=== PATIENT | male | born 1985 | race Caucasian/White ===

== ENCOUNTER 2016-03-26 17:43 | Emergency (ER) | payer OTHER ==
[2016-03-26] MEDS ORDERED: KETOROLAC 30 MG/ML VIAL (J1885) As Ordered ONE (19:11)
[2016-03-26] MEDS ORDERED: ONDANSETRON 4MG/2ML VIAL (J2405) As Ordered ONE (19:11)
[2016-03-26 19:14] LABS: BASO % 0.1 % (0.0-1.0); EOS # 0.3 K/mm3 (0.0-0.50); EOS % 1.7 % (0.0-3.0); LARGE UNSTAINED CELL % 0.2 % (0.0-4.0); LYMPH # 0.5 K/mm3 (1.5-4.5); LYMPH % 3.2 % (24.0-44.0); MEAN CORPUSCULAR HEMOGLOBIN 30.6 pg (27.0-33.0); MEAN CORPUSCULAR HGB CONC 35.5 g/dl (32.0-36.5); MEAN CORPUSCULAR VOLUME 86.2 fl (80.0-96.0); MONO # 0.3 K/mm3 (0.0-0.8); MONO % 1.9 % (0.0-5.0); NEUTROPHILS # 14.1 K/mm3 (1.8-7.7); NEUTROPHILS % 92.8 % (36.0-66.0); PLATELET COUNT, AUTOMATED 251 k/mm3 (150-450); RED CELL DISTRIBUTION WIDTH 12.2 % (11.5-14.5); WHITE BLOOD COUNT 15.2 K/mm3 (4.0-10.0)
[2016-03-26 19:36] LABS: ALBUMIN 4.5 GM/DL (3.2-5.2); ALBUMIN/GLOBULIN RATIO 1.29 (1.00-1.93); ALKALINE PHOSPHATASE 78 U/L (45-117); ALT/SGPT 55 U/L (12-78); AMYLASE 35 U/L (25-115); ANION GAP 11 MEQ/L (8-16); AST/SGOT 20 U/L (15-37); BILIRUBIN,DIRECT 0.2 MG/DL (0.0-0.2); BILIRUBIN,TOTAL 0.9 MG/DL (0.2-1.0); BLOOD UREA NITROGEN 17 MG/DL (7-18); CALCIUM LEVEL 9.5 MG/DL (8.5-10.1); CARBON DIOXIDE LEVEL 25 MEQ/L (21-32); CHLORIDE LEVEL 106 MEQ/L (98-107); CREATININE FOR GFR 1.33 MG/DL (0.70-1.30); GLOMERULAR FILTRATION RATE > 60.0 (>60); GLUCOSE, FASTING 149 MG/DL (70-105); SODIUM LEVEL 142 MEQ/L (136-145)
[2016-03-26] MEDS ORDERED: ONDANSETRON 4 MG ORAL DISINTEGRATING TAB (S0181) As Ordered ONE (20:34)
--- NOTE | 2016-03-26 20:58 | EDDOCDS ---
Physician Documentation [facility] Name: Derek Renee Age: 30 yrs Sex: Male : 1985 Arrival Date: 03/26/2016 Time: 17:43 Bed I2 / M2 Private MD: NO PRIMARY PHYSICIAN, . Disposition: 03/26/16 20:09 Discharged to Home/Self Care. Impression: Nausea and vomiting. - Condition is Stable. - Discharge Instructions: Nausea and Vomiting, Viral Gastroenteritis. - Prescriptions for Zofran 4 mg Oral Tablet - take 1 tablet by ORAL route 4 times per day As needed; 10 tablet. - Medication Reconciliation, Local Pharmacy Hours form. - [facility]; When: Call to arrange an appointment; Reason: Recheck today's complaints, Continuance of care. - Problem is an acute exacerbation. - Symptoms have improved. Historical: - Allergies: PENICILLINS (Unknown); - Home Meds: 1. none - PMHx: none; - PSHx: right hand boxer fracture with plate; Tonsillectomy; - Social history: Smoking status: Patient states was never smoker of tobacco. No barriers to communication noted, The patient speaks fluent Angolan. - Family history: Not pertinent. - : The pt / caregiver states he / she is not on anticoagulants. Home medication list is obtained from the patient. - Exposure Risk Screening:: None identified. Vital Signs: 03/26 17:44 BP 151 / 78; Pulse 80; Resp 20 S; Temp 97.8(O); Pulse Ox 99% on R/A; Weight 113.4 kg / gr2 250 lbs (R); Height 6 ft. 2 in. (187.96 cm) (M); Pain 7/10; 20:38 BP 134 / 80; Pulse 105; Resp 18; Temp 99.0(O); Pulse Ox 100% on R/A; Pain 0/10; kb5 17:44 Body Mass Index 32.10 (113.40 kg, 187.96 cm) gr2 MDM: 18:16 NS 0.9% 1000 ml IV at bolus once ordered. ke 18:16 Ondansetron 4 mg IVP once ordered. ke 18:16 ketorolac 30 mg IVP once ordered. ke 18:16 IV Saline Lock ordered. ke 18:16 Undress patient appropriately for examination ordered. ke 18:17 Amylase Ordered. EDMS 18:17 Basic Metabolic Profile Ordered. EDMS 18:17 CBC with Diff Ordered. EDMS 18:17 Lipase Ordered. EDMS 18:17 Liver Profile Ordered. EDMS 18:17 NOTHING BY MOUTH+DIET ordered. EDMS 18:28 Financial registration complete. gjb 18:38 [facility] Payment Agreement was scanned into [employer] and attached to record. gjb 19:39 Basic Metabolic Profile Reviewed. ke 19:39 CBC with Diff Reviewed. ke 19:39 Amylase Reviewed. ke 19:39 Lipase Reviewed. ke 19:39 Liver Profile Reviewed. ke 20:33 Ondansetron ODT Oral Disintegrating Tablet 4 mg PO once; dispense home with patient [facility] ordered. Administered Medications: 19:21 Drug: NS 0.9% 1000 ml Route: IV; Rate: bolus; Site: right antecubital; [facility] 20:53 Follow up: IV Status: Completed infusion; IV Intake: 1000ml [facility] 19:21 Drug: Ondansetron 4 mg Route: IVP; Site: right antecubital; [facility] 20:54 Follow up: Response: Nausea is decreased; No Adverse Reaction [facility] 19:22 Drug: ketorolac 30 mg [ketorolac 30 mg/mL (1 mL) injection solution (1 mL)] Route: IVP; [facility] Site: right antecubital; 20:54 Follow up: Response: No Adverse Reaction; Pain is decreased [facility] 20:53 Drug: Ondansetron ODT 4 mg [ondansetron 4 mg disintegrating tablet (1 tabs)] Route: PO; [facility] 20:54 Follow up: Response: Med's dispensed home [facility] Signatures: Dispatcher [employer] EDIN Bernardo Kramer, SOLE LEATHER CUTTING MACHINE OPERATOR SOLE LEATHER CUTTING MACHINE OPERATOR Vanessa Xavier RN RN Emily TristanRN SILVIA [facility] Janell De La Rosa The chart was reviewed and I authenticate all verbal orders and agree with the evaluation and treatment provided.Attachments: 18:38 [facility] Payment Agreement gj MTDD
--- NOTE | 2016-03-26 20:58 | EDDOCDS ---
Nurse's Notes [facility] Name: Derek Renee Age: 30 yrs Sex: Male : 1985 Arrival Date: 03/26/2016 Time: 17:43 Bed I2 / M2 Private MD: NO PRIMARY PHYSICIAN, . Diagnosis: Nausea and vomiting Presentation: 03/26 17:51 Presenting complaint: Patient states: NVD since 0700 this morning, reports ache to jjr chest abdomen and back. Adult Sepsis Screening: The patient does not have new or worsening altered mentation. Patient's respiratory rate is less than 22. Systolic blood pressure is greater than 100. Patient has a qSOFA score of 0- Negative Sepsis Screen. Suicide/Homicide risk assessment- the patient denies having any suicidal and/or homicidal ideations and does not present with any other emotional, behavioral or mental health complaints. Status: Patient is not a statement services representative or dependent. Transition of care: patient was not received from another setting of care. 17:51 Acuity: ZION Level 3 jjr 17:51 Method Of Arrival: Walkin/Carried/Asstd jjr Triage Assessment: 17:53 General: Appears uncomfortable, Behavior is appropriate for age. Pain: Location: back, jjr chest and abdomen Quality of pain is described as aching. HIV screening NA for this visit Offered previously. GI: Reports diarrhea, nausea, vomiting. Historical: - Allergies: PENICILLINS (Unknown); - Home Meds: 1. none - PMHx: none; - PSHx: right hand boxer fracture with plate; Tonsillectomy; - Social history: Smoking status: Patient states was never smoker of tobacco. No barriers to communication noted, The patient speaks fluent Hungarian. - Family history: Not pertinent. - : The pt / caregiver states he / she is not on anticoagulants. Home medication list is obtained from the patient. - Exposure Risk Screening:: None identified. Screenin:55 Screening information is obtained from the patient. Fall risk: No risks identified. [facility] Assistance ADL's: requires no assistance with activities of daily living. Abuse/DV Screen: The patient / caregiver reports he/she is: not in a situation that causes fear, pain or injury. Nutritional screening: No deficits noted. Advance Directives: There is no active DNR order. home support is adequate. Assessment: 19:22 General: Appears in no apparent distress, comfortable, Behavior is appropriate for age, [facility] cooperative. Pain: Location: abdomen and chest and back Pain currently is 6 out of 10 on a pain scale. Neurological: Level of Consciousness is awake, alert, Oriented to person, place, time. Respiratory: Airway is patent Respiratory effort is even, unlabored, Respiratory pattern is regular, symmetrical. GI: Abdomen is non- distended Bowel sounds present X 4 quads. Abd is soft X 4 quads Abd is tender to palpation in epigastric area Reports nausea, vomiting. Derm: Skin is pink, warm & dry. 20:55 General: Appears in no apparent distress, comfortable, Behavior is appropriate for age, [facility] cooperative, awaiting discharge, reviewed instructions, encouraged and answered questions, no further needs voiced, decline offer of additional assistance. Vital Signs: 17:44 BP 151 / 78; Pulse 80; Resp 20 S; Temp 97.8(O); Pulse Ox 99% on R/A; Weight 113.4 kg gr2 (R); Height 6 ft. 2 in. (187.96 cm) (M); Pain 7/10; 20:38 BP 134 / 80; Pulse 105; Resp 18; Temp 99.0(O); Pulse Ox 100% on R/A; Pain 0/10; kb5 17:44 Body Mass Index 32.10 (113.40 kg, 187.96 cm) gr2 Vitals: 17:44 Log In Time: March 26, 2016 at 17:44. gr2 ED Course: 17:44 Patient visited by Christian Mcmanus. gr2 17:44 NO PRIMARY PHYSICIAN, . is Private Physician. gr2 17:44 Patient moved to Waiting gr2 17:47 Patient visited by Christian Mcmanus. gr2 17:47 Patient moved to Pre RCE gr2 17:52 Triage Initiated jjr 17:53 Patient moved to Triage 2 jjr 18:06 [facility] ke 18:07 Patient visited by Bernardo Kramer FNP. ke 18:07 Patient visited by Bernardo Kramer FNP. ke 18:16 Patient moved to I2 / M2 ttb 18:36 Patient visited by Valentin Putnam PCA. jlf 18:38 [facility] Payment Agreement was scanned into [employer] and attached to record. gjb 19:14 Patient visited by Bernardo Kramer FNP. ke 19:22 The patient / caregiver is instructed regarding the plan of care and ED course. [facility] Accompanied by Family Member, Patient has correct armband on for positive identification. Placed in gown. Bed in low position. Call light in reach. 19:22 Inserted saline lock: 20 gauge in right antecubital area and blood collected. Labs [facility] drawn. (by ED staff). Sent per order to lab. 19:49 Patient visited by Bernardo Kramer FNP. ke 20:08 [facility] is Referral Physician. ke 20:38 Patient visited by Keanu Milian PCA. kb5 20:55 Discontinued lock intact, bleeding controlled, pressure dressing applied, No [facility] redness/swelling at site. No procedures done that require assistance. Administered Medications: 19:21 Drug: NS 0.9% 1000 ml Route: IV; Rate: bolus; Site: right antecubital; [facility] 20:53 Follow up: IV Status: Completed infusion; IV Intake: 1000ml [facility] 19:21 Drug: Ondansetron 4 mg Route: IVP; Site: right antecubital; [facility] 20:54 Follow up: Response: Nausea is decreased; No Adverse Reaction [facility] 19:22 Drug: ketorolac 30 mg [ketorolac 30 mg/mL (1 mL) injection solution (1 mL)] Route: IVP; [facility] Site: right antecubital; 20:54 Follow up: Response: No Adverse Reaction; Pain is decreased [facility] 20:53 Drug: Ondansetron ODT 4 mg [ondansetron 4 mg disintegrating tablet (1 tabs)] Route: PO; [facility] 20:54 Follow up: Response: Med's dispensed home [facility] Intake: 20:53 IV: 1000.00ml; Total: 1000.00ml. [facility] Order Results: Lab Order: Amylase; SPEC'M 03/26/16 19:08 Test: AMYLASE; Value: 35; Range: 25-115; Units: U/L; Status: F Lab Order: Basic Metabolic Profile; SPEC'M 03/26/16 19:08 Test: GLUCOSE, FASTING; Value: 149; Range: 70-105; Abnormal: Above high normal; Units: MG/DL; Status: F Test: BLOOD UREA NITROGEN; Value: 17; Range: 7-18; Units: MG/DL; Status: F Test: CREATININE FOR GFR; Value: 1.33; Range: 0.70-1.30; Abnormal: Above high normal; Units: MG/DL; Status: F Test: GLOMERULAR FILTRATION RATE; Value: > 60.0; Range: >60; Status: F Test: SODIUM LEVEL; Value: 142; Range: 136-145; Units: MEQ/L; Status: F Test: POTASSIUM SERUM; Value: 4.0; Range: 3.5-5.1; Units: MEQ/L; Status: F Test: CHLORIDE LEVEL; Value: 106; Range: 98-107; Units: MEQ/L; Status: F Test: CARBON DIOXIDE LEVEL; Value: 25; Range: 21-32; Units: MEQ/L; Status: F Test: ANION GAP; Value: 11; Range: 8-16; Units: MEQ/L; Status: F Test: CALCIUM LEVEL; Value: 9.5; Range: 8.5-10.1; Units: MG/DL; Status: F Test Note: ; Units are mL/min/1.73 m2 Chronic Kidney Disease Staging per NKF: Stage I & II GFR >=60 Normal to Mildly Decreased Stage III GFR 30-59 Moderately Decreased Stage IV GFR 15-29 Severely Decreased Stage V GFR <15 Very Little GFR Left ESRD GFR <15 on COMMERCIAL MARKETING SPECIALIST Lab Order: CBC with Diff; SPEC'M 03/26/16 19:08 Test: WHITE BLOOD COUNT; Value: 15.2; Range: 4.0-10.0; Abnormal: Above high normal; Units: K/mm3; Status: F Test: RED BLOOD COUNT; Value: 5.61; Range: 4.30-6.10; Units: M/mm3; Status: F Test: HEMOGLOBIN; Value: 17.1; Range: 14.0-18.0; Units: g/dl; Status: F Test: HEMATOCRIT; Value: 48.3; Range: 42.0-52.0; Units: %; Status: F Test: MEAN CORPUSCULAR VOLUME; Value: 86.2; Range: 80.0-96.0; Units: fl; Status: F Test: MEAN CORPUSCULAR HEMOGLOBIN; Value: 30.6; Range: 27.0-33.0; Units: pg; Status: F Test: MEAN CORPUSCULAR HGB CONC; Value: 35.5; Range: 32.0-36.5; Units: g/dl; Status: F Test: RED CELL DISTRIBUTION WIDTH; Value: 12.2; Range: 11.5-14.5; Units: %; Status: F Test: PLATELET COUNT, AUTOMATED; Value: 251; Range: 150-450; Units: k/mm3; Status: F Test: NEUTROPHILS %; Value: 92.8; Range: 36.0-66.0; Abnormal: Above high normal; Units: %; Status: F Test: LYMPH %; Value: 3.2; Range: 24.0-44.0; Abnormal: Below low normal; Units: %; Status: F Test: MONO %; Value: 1.9; Range: 0.0-5.0; Units: %; Status: F Test: EOS %; Value: 1.7; Range: 0.0-3.0; Units: %; Status: F Test: BASO %; Value: 0.1; Range: 0.0-1.0; Units: %; Status: F Test: LARGE UNSTAINED CELL %; Value: 0.2; Range: 0.0-4.0; Units: %; Status: F Test: NEUTROPHILS #; Value: 14.1; Range: 1.8-7.7; Abnormal: Above high normal; Units: K/mm3; Status: F Test: LYMPH #; Value: 0.5; Range: 1.5-4.5; Abnormal: Below low normal; Units: K/mm3; Status: F Test: MONO #; Value: 0.3; Range: 0.0-0.8; Units: K/mm3; Status: F Test: EOS #; Value: 0.3; Range: 0.0-0.50; Units: K/mm3; Status: F Test: BASO #; Value: 0.0; Range: 0.0-0.2; Units: K/mm3; Status: F Test: LARGE UNSTAINED CELL #; Value: 0.0; Range: 0.0-0.4; Units: K/mm3; Status: F Lab Order: Lipase; SPEC'M 03/26/16 19:08 Test: LIPASE; Value: 94; Range: 73-393; Units: U/L; Status: F Lab Order: Liver Profile; SPEC'M 03/26/16 19:08 Test: AST/SGOT; Value: 20; Range: 15-37; Units: U/L; Status: F Test: ALT/SGPT; Value: 55; Range: 12-78; Units: U/L; Status: F Test: ALKALINE PHOSPHATASE; Value: 78; Range: 45-117; Units: U/L; Status: F Test: BILIRUBIN,TOTAL; Value: 0.9; Range: 0.2-1.0; Units: MG/DL; Status: F Test: BILIRUBIN,DIRECT; Value: 0.2; Range: 0.0-0.2; Units: MG/DL; Status: F Test: TOTAL PROTEIN; Value: 8.0; Range: 6.4-8.2; Units: GM/DL; Status: F Test: ALBUMIN; Value: 4.5; Range: 3.2-5.2; Units: GM/DL; Status: F Test: ALBUMIN/GLOBULIN RATIO; Value: 1.29; Range: 1.00-1.93; Status: F Outcome: 20:09 Discharge ordered by Provider. ke 20:55 Discharge Assessment: Patient awake, alert and oriented x 3. No cognitive and/or [facility] functional deficits noted. Patient verbalized understanding of disposition instructions. patient administered narcotics - no. The following High Risk Discharge criteria are identified: None. Discharged to home ambulatory, with family. Condition: good Condition: stable Condition: improved. Discharge instructions given to patient, significant other, Instructed on discharge instructions, follow up and referral plans. medication usage, Demonstrated understanding of instructions, medications, Pt was receptive of discharge instructions/ teaching. Prescriptions given X 1. No special radiology studies were completed. Property :Personal belongings accompany Pt. 20:57 Patient left the ED. [facility] Signatures: Bernardo Kramer, JENNY PACKING AND WRAPPING SUPERVISOR Keanu Butts, SULFURIC ACID PLANT SUPERVISOR SULFURIC ACID PLANT SUPERVISOR kb5 Vanessa Mcmanus RN RN jjr Hafner, Jane, RN RN [facility] Joslyn Martínez RN RN ttb Christian Mcmanus grValentin Avina, SULFURIC ACID PLANT SUPERVISOR SULFURIC ACID PLANT SUPERVISOR jlf Janell De La Rosab MTDD
--- NOTE | 2016-03-28 21:58 | EDDOCDS ---
Physician Documentation [facility] Name: Derek Renee Age: 30 yrs Sex: Male : 1985 Arrival Date: 03/26/2016 Time: 17:43 Bed I2 / M2 Private MD: NO PRIMARY PHYSICIAN, . Disposition: 03/26/16 20:09 Discharged to Home/Self Care. Impression: Nausea and vomiting. - Condition is Stable. - Discharge Instructions: Nausea and Vomiting, Viral Gastroenteritis. - Prescriptions for Zofran 4 mg Oral Tablet - take 1 tablet by ORAL route 4 times per day As needed; 10 tablet. - Medication Reconciliation, Local Pharmacy Hours form. - [facility]: [facility]; When: Call to arrange an appointment; Reason: Recheck today's complaints, Continuance of care. - Problem is an acute exacerbation. - Symptoms have improved. Historical: - Allergies: PENICILLINS (Unknown); - Home Meds: 1. none - PMHx: none; - PSHx: right hand boxer fracture with plate; Tonsillectomy; - Social history: Smoking status: Patient states was never smoker of tobacco. No barriers to communication noted, The patient speaks fluent Ghanaian. - Family history: Not pertinent. - : The pt / caregiver states he / she is not on anticoagulants. Home medication list is obtained from the patient. - Exposure Risk Screening:: None identified. Vital Signs: 03/26 17:44 BP 151 / 78; Pulse 80; Resp 20 S; Temp 97.8(O); Pulse Ox 99% on R/A; Weight 113.4 kg / gr2 250 lbs (R); Height 6 ft. 2 in. (187.96 cm) (M); Pain 7/10; 20:38 BP 134 / 80; Pulse 105; Resp 18; Temp 99.0(O); Pulse Ox 100% on R/A; Pain 0/10; kb5 17:44 Body Mass Index 32.10 (113.40 kg, 187.96 cm) gr2 MDM: 18:16 NS 0.9% 1000 ml IV at bolus once ordered. ke 18:16 Ondansetron 4 mg IVP once ordered. ke 18:16 ketorolac 30 mg IVP once ordered. ke 18:16 IV Saline Lock ordered. ke 18:16 Undress patient appropriately for examination ordered. ke 18:17 Amylase Ordered. EDMS 18:17 Basic Metabolic Profile Ordered. EDMS 18:17 CBC with Diff Ordered. EDMS 18:17 Lipase Ordered. EDMS 18:17 Liver Profile Ordered. EDMS 18:17 NOTHING BY MOUTH+DIET ordered. EDMS 18:28 Financial registration complete. gjb 18:38 [facility] Payment Agreement was scanned into [employer] and attached to record. gjb 19:39 Basic Metabolic Profile Reviewed. ke 19:39 CBC with Diff Reviewed. ke 19:39 Amylase Reviewed. ke 19:39 Lipase Reviewed. ke 19:39 Liver Profile Reviewed. ke 20:33 Ondansetron ODT Oral Disintegrating Tablet 4 mg PO once; dispense home with patient [facility] ordered. 03/27 11:22 T-Sheet-- Draft Copy was scanned into [employer] and attached to record. gb Administered Medications: 03/26 19:21 Drug: NS 0.9% 1000 ml Route: IV; Rate: bolus; Site: right antecubital; [facility] 20:53 Follow up: IV Status: Completed infusion; IV Intake: 1000ml [facility] 19:21 Drug: Ondansetron 4 mg Route: IVP; Site: right antecubital; [facility] 20:54 Follow up: Response: Nausea is decreased; No Adverse Reaction [facility] 19:22 Drug: ketorolac 30 mg [ketorolac 30 mg/mL (1 mL) injection solution (1 mL)] Route: IVP; [facility] Site: right antecubital; 20:54 Follow up: Response: No Adverse Reaction; Pain is decreased [facility] 20:53 Drug: Ondansetron ODT 4 mg [ondansetron 4 mg disintegrating tablet (1 tabs)] Route: PO; [facility] 20:54 Follow up: Response: Med's dispensed home [facility] Signatures: Dispatcher Med[employer] EDMS Veena Santamaria, Reg Reg Bernardo Blanca, DRILL DOCTOR DRILL DOCTOR Vanessa Xavier RN RN Emily Tristan RN RN [facility] Janell De La Rosa The chart was reviewed and I authenticate all verbal orders and agree with the evaluation and treatment provided.Attachments: 18:38 [facility] Payment Agreement [facility] 03/27 11:22 T-Sheet-- Draft Copy gb Chart Complete MTDD
--- NOTE | 2016-03-28 21:58 | EDDOCDS ---
Physician Documentation [facility] Name: Derek Renee Age: 30 yrs Sex: Male : 1985 Arrival Date: 03/26/2016 Time: 17:43 Bed I2 / M2 Private MD: NO PRIMARY PHYSICIAN, . Disposition: 03/26/16 20:09 Discharged to Home/Self Care. Impression: Nausea and vomiting. - Condition is Stable. - Discharge Instructions: Nausea and Vomiting, Viral Gastroenteritis. - Prescriptions for Zofran 4 mg Oral Tablet - take 1 tablet by ORAL route 4 times per day As needed; 10 tablet. - Medication Reconciliation, Local Pharmacy Hours form. - [facility]: [facility]; When: Call to arrange an appointment; Reason: Recheck today's complaints, Continuance of care. - Problem is an acute exacerbation. - Symptoms have improved. Historical: - Allergies: PENICILLINS (Unknown); - Home Meds: 1. none - PMHx: none; - PSHx: right hand boxer fracture with plate; Tonsillectomy; - Social history: Smoking status: Patient states was never smoker of tobacco. No barriers to communication noted, The patient speaks fluent Guamanian. - Family history: Not pertinent. - : The pt / caregiver states he / she is not on anticoagulants. Home medication list is obtained from the patient. - Exposure Risk Screening:: None identified. Vital Signs: 03/26 17:44 BP 151 / 78; Pulse 80; Resp 20 S; Temp 97.8(O); Pulse Ox 99% on R/A; Weight 113.4 kg / gr2 250 lbs (R); Height 6 ft. 2 in. (187.96 cm) (M); Pain 7/10; 20:38 BP 134 / 80; Pulse 105; Resp 18; Temp 99.0(O); Pulse Ox 100% on R/A; Pain 0/10; kb5 17:44 Body Mass Index 32.10 (113.40 kg, 187.96 cm) gr2 MDM: 18:16 NS 0.9% 1000 ml IV at bolus once ordered. ke 18:16 Ondansetron 4 mg IVP once ordered. ke 18:16 ketorolac 30 mg IVP once ordered. ke 18:16 IV Saline Lock ordered. ke 18:16 Undress patient appropriately for examination ordered. ke 18:17 Amylase Ordered. EDMS 18:17 Basic Metabolic Profile Ordered. EDMS 18:17 CBC with Diff Ordered. EDMS 18:17 Lipase Ordered. EDMS 18:17 Liver Profile Ordered. EDMS 18:17 NOTHING BY MOUTH+DIET ordered. EDMS 18:28 Financial registration complete. gjb 18:38 [facility] Payment Agreement was scanned into [employer] and attached to record. gjb 19:39 Basic Metabolic Profile Reviewed. ke 19:39 CBC with Diff Reviewed. ke 19:39 Amylase Reviewed. ke 19:39 Lipase Reviewed. ke 19:39 Liver Profile Reviewed. ke 20:33 Ondansetron ODT Oral Disintegrating Tablet 4 mg PO once; dispense home with patient [facility] ordered. 03/27 11:22 T-Sheet-- Draft Copy was scanned into [employer] and attached to record. gb Administered Medications: 03/26 19:21 Drug: NS 0.9% 1000 ml Route: IV; Rate: bolus; Site: right antecubital; [facility] 20:53 Follow up: IV Status: Completed infusion; IV Intake: 1000ml [facility] 19:21 Drug: Ondansetron 4 mg Route: IVP; Site: right antecubital; [facility] 20:54 Follow up: Response: Nausea is decreased; No Adverse Reaction [facility] 19:22 Drug: ketorolac 30 mg [ketorolac 30 mg/mL (1 mL) injection solution (1 mL)] Route: IVP; [facility] Site: right antecubital; 20:54 Follow up: Response: No Adverse Reaction; Pain is decreased [facility] 20:53 Drug: Ondansetron ODT 4 mg [ondansetron 4 mg disintegrating tablet (1 tabs)] Route: PO; [facility] 20:54 Follow up: Response: Med's dispensed home [facility] Signatures: Dispatcher [employer] EDMS Veena Santamaria, Reg Reg Bernardo Blanca, ADVANCED DEVELOPER ADVANCED DEVELOPER Vanessa Xavier RN RN Emily Tristan RN RN [facility] Janell De La Rosa The chart was reviewed and I authenticate all verbal orders and agree with the evaluation and treatment provided.Attachments: 18:38 [facility] Payment Agreement [facility] 03/27 11:22 T-Sheet-- Draft Copy gb Chart Complete MTDD
--- NOTE | 2016-03-28 21:58 | EDDOCDS ---
Nurse's Notes [facility] Name: Derek Renee Age: 30 yrs Sex: Male : 1985 Arrival Date: 03/26/2016 Time: 17:43 Bed I2 / M2 Private MD: NO PRIMARY PHYSICIAN, . Diagnosis: Nausea and vomiting Presentation: 03/26 17:51 Presenting complaint: Patient states: NVD since 0700 this morning, reports ache to jjr chest abdomen and back. Adult Sepsis Screening: The patient does not have new or worsening altered mentation. Patient's respiratory rate is less than 22. Systolic blood pressure is greater than 100. Patient has a qSOFA score of 0- Negative Sepsis Screen. Suicide/Homicide risk assessment- the patient denies having any suicidal and/or homicidal ideations and does not present with any other emotional, behavioral or mental health complaints. Status: Patient is not a guest services assistant or dependent. Transition of care: patient was not received from another setting of care. 17:51 Acuity: ZION Level 3 jjr 17:51 Method Of Arrival: Walkin/Carried/Asstd jjr Triage Assessment: 17:53 General: Appears uncomfortable, Behavior is appropriate for age. Pain: Location: back, jjr chest and abdomen Quality of pain is described as aching. HIV screening NA for this visit Offered previously. GI: Reports diarrhea, nausea, vomiting. Historical: - Allergies: PENICILLINS (Unknown); - Home Meds: 1. none - PMHx: none; - PSHx: right hand boxer fracture with plate; Tonsillectomy; - Social history: Smoking status: Patient states was never smoker of tobacco. No barriers to communication noted, The patient speaks fluent Hungarian. - Family history: Not pertinent. - : The pt / caregiver states he / she is not on anticoagulants. Home medication list is obtained from the patient. - Exposure Risk Screening:: None identified. Screenin:55 Screening information is obtained from the patient. Fall risk: No risks identified. [facility] Assistance ADL's: requires no assistance with activities of daily living. Abuse/DV Screen: The patient / caregiver reports he/she is: not in a situation that causes fear, pain or injury. Nutritional screening: No deficits noted. Advance Directives: There is no active DNR order. home support is adequate. Assessment: 19:22 General: Appears in no apparent distress, comfortable, Behavior is appropriate for age, [facility] cooperative. Pain: Location: abdomen and chest and back Pain currently is 6 out of 10 on a pain scale. Neurological: Level of Consciousness is awake, alert, Oriented to person, place, time. Respiratory: Airway is patent Respiratory effort is even, unlabored, Respiratory pattern is regular, symmetrical. GI: Abdomen is non- distended Bowel sounds present X 4 quads. Abd is soft X 4 quads Abd is tender to palpation in epigastric area Reports nausea, vomiting. Derm: Skin is pink, warm & dry. 20:55 General: Appears in no apparent distress, comfortable, Behavior is appropriate for age, [facility] cooperative, awaiting discharge, reviewed instructions, encouraged and answered questions, no further needs voiced, decline offer of additional assistance. Vital Signs: 17:44 BP 151 / 78; Pulse 80; Resp 20 S; Temp 97.8(O); Pulse Ox 99% on R/A; Weight 113.4 kg gr2 (R); Height 6 ft. 2 in. (187.96 cm) (M); Pain 7/10; 20:38 BP 134 / 80; Pulse 105; Resp 18; Temp 99.0(O); Pulse Ox 100% on R/A; Pain 0/10; kb5 17:44 Body Mass Index 32.10 (113.40 kg, 187.96 cm) gr2 Vitals: 17:44 Log In Time: March 26, 2016 at 17:44. gr2 ED Course: 17:44 Patient visited by Christian Mcmanus. gr2 17:44 NO PRIMARY PHYSICIAN, . is Private Physician. gr2 17:44 Patient moved to Waiting gr2 17:47 Patient visited by Christian Mcmanus. gr2 17:47 Patient moved to Pre RCE gr2 17:52 Triage Initiated jjr 17:53 Patient moved to Triage 2 jjr 18:06 [facility] ke 18:07 Patient visited by Bernardo Kramer FNP. ke 18:07 Patient visited by Bernardo Kramer FNP. ke 18:16 Patient moved to I2 / M2 ttb 18:36 Patient visited by Valentin Putnam PCA. jlf 18:38 [facility] [place] was scanned into [employer] and attached to record. gjb 19:14 Patient visited by Bernardo Kramer FNP. ke 19:22 The patient / caregiver is instructed regarding the plan of care and ED course. [facility] Accompanied by Family Member, Patient has correct armband on for positive identification. Placed in gown. Bed in low position. Call light in reach. 19:22 Inserted saline lock: 20 gauge in right antecubital area and blood collected. Labs cj drawn. (by ED staff). Sent per order to lab. 19:49 Patient visited by Bernardo Kramer FNP. ke 20:08 [facility] is Referral Physician. ke 20:38 Patient visited by Keanu Milian PCA. kb5 20:55 Discontinued lock intact, bleeding controlled, pressure dressing applied, No [facility] redness/swelling at site. No procedures done that require assistance. 03/27 11:22 T-Sheet-- Draft Copy was scanned into [employer] and attached to record. gb Administered Medications: 03/26 19:21 Drug: NS 0.9% 1000 ml Route: IV; Rate: bolus; Site: right antecubital; [facility] 20:53 Follow up: IV Status: Completed infusion; IV Intake: 1000ml [facility] 19:21 Drug: Ondansetron 4 mg Route: IVP; Site: right antecubital; [facility] 20:54 Follow up: Response: Nausea is decreased; No Adverse Reaction [facility] 19:22 Drug: ketorolac 30 mg [ketorolac 30 mg/mL (1 mL) injection solution (1 mL)] Route: IVP; [facility] Site: right antecubital; 20:54 Follow up: Response: No Adverse Reaction; Pain is decreased [facility] 20:53 Drug: Ondansetron ODT 4 mg [ondansetron 4 mg disintegrating tablet (1 tabs)] Route: PO; [facility] 20:54 Follow up: Response: Med's dispensed home [facility] Intake: 20:53 IV: 1000.00ml; Total: 1000.00ml. [facility] Order Results: Lab Order: Amylase; SPEC'M 03/26/16 19:08 Test: AMYLASE; Value: 35; Range: 25-115; Units: U/L; Status: F Lab Order: Basic Metabolic Profile; SPEC'M 03/26/16 19:08 Test: GLUCOSE, FASTING; Value: 149; Range: 70-105; Abnormal: Above high normal; Units: MG/DL; Status: F Test: BLOOD UREA NITROGEN; Value: 17; Range: 7-18; Units: MG/DL; Status: F Test: CREATININE FOR GFR; Value: 1.33; Range: 0.70-1.30; Abnormal: Above high normal; Units: MG/DL; Status: F Test: GLOMERULAR FILTRATION RATE; Value: > 60.0; Range: >60; Status: F Test: SODIUM LEVEL; Value: 142; Range: 136-145; Units: MEQ/L; Status: F Test: POTASSIUM SERUM; Value: 4.0; Range: 3.5-5.1; Units: MEQ/L; Status: F Test: CHLORIDE LEVEL; Value: 106; Range: 98-107; Units: MEQ/L; Status: F Test: CARBON DIOXIDE LEVEL; Value: 25; Range: 21-32; Units: MEQ/L; Status: F Test: ANION GAP; Value: 11; Range: 8-16; Units: MEQ/L; Status: F Test: CALCIUM LEVEL; Value: 9.5; Range: 8.5-10.1; Units: MG/DL; Status: F Test Note: ; Units are mL/min/1.73 m2 Chronic Kidney Disease Staging per NKF: Stage I & II GFR >=60 Normal to Mildly Decreased Stage III GFR 30-59 Moderately Decreased Stage IV GFR 15-29 Severely Decreased Stage V GFR <15 Very Little GFR Left ESRD GFR <15 on MACHINE ASSEMBLER FOR PULLER OVER Lab Order: CBC with Diff; SPEC'M 03/26/16 19:08 Test: WHITE BLOOD COUNT; Value: 15.2; Range: 4.0-10.0; Abnormal: Above high normal; Units: K/mm3; Status: F Test: RED BLOOD COUNT; Value: 5.61; Range: 4.30-6.10; Units: M/mm3; Status: F Test: HEMOGLOBIN; Value: 17.1; Range: 14.0-18.0; Units: g/dl; Status: F Test: HEMATOCRIT; Value: 48.3; Range: 42.0-52.0; Units: %; Status: F Test: MEAN CORPUSCULAR VOLUME; Value: 86.2; Range: 80.0-96.0; Units: fl; Status: F Test: MEAN CORPUSCULAR HEMOGLOBIN; Value: 30.6; Range: 27.0-33.0; Units: pg; Status: F Test: MEAN CORPUSCULAR HGB CONC; Value: 35.5; Range: 32.0-36.5; Units: g/dl; Status: F Test: RED CELL DISTRIBUTION WIDTH; Value: 12.2; Range: 11.5-14.5; Units: %; Status: F Test: PLATELET COUNT, AUTOMATED; Value: 251; Range: 150-450; Units: k/mm3; Status: F Test: NEUTROPHILS %; Value: 92.8; Range: 36.0-66.0; Abnormal: Above high normal; Units: %; Status: F Test: LYMPH %; Value: 3.2; Range: 24.0-44.0; Abnormal: Below low normal; Units: %; Status: F Test: MONO %; Value: 1.9; Range: 0.0-5.0; Units: %; Status: F Test: EOS %; Value: 1.7; Range: 0.0-3.0; Units: %; Status: F Test: BASO %; Value: 0.1; Range: 0.0-1.0; Units: %; Status: F Test: LARGE UNSTAINED CELL %; Value: 0.2; Range: 0.0-4.0; Units: %; Status: F Test: NEUTROPHILS #; Value: 14.1; Range: 1.8-7.7; Abnormal: Above high normal; Units: K/mm3; Status: F Test: LYMPH #; Value: 0.5; Range: 1.5-4.5; Abnormal: Below low normal; Units: K/mm3; Status: F Test: MONO #; Value: 0.3; Range: 0.0-0.8; Units: K/mm3; Status: F Test: EOS #; Value: 0.3; Range: 0.0-0.50; Units: K/mm3; Status: F Test: BASO #; Value: 0.0; Range: 0.0-0.2; Units: K/mm3; Status: F Test: LARGE UNSTAINED CELL #; Value: 0.0; Range: 0.0-0.4; Units: K/mm3; Status: F Lab Order: Lipase; SPEC'M 03/26/16 19:08 Test: LIPASE; Value: 94; Range: 73-393; Units: U/L; Status: F Lab Order: Liver Profile; SPEC'M 03/26/16 19:08 Test: AST/SGOT; Value: 20; Range: 15-37; Units: U/L; Status: F Test: ALT/SGPT; Value: 55; Range: 12-78; Units: U/L; Status: F Test: ALKALINE PHOSPHATASE; Value: 78; Range: 45-117; Units: U/L; Status: F Test: BILIRUBIN,TOTAL; Value: 0.9; Range: 0.2-1.0; Units: MG/DL; Status: F Test: BILIRUBIN,DIRECT; Value: 0.2; Range: 0.0-0.2; Units: MG/DL; Status: F Test: TOTAL PROTEIN; Value: 8.0; Range: 6.4-8.2; Units: GM/DL; Status: F Test: ALBUMIN; Value: 4.5; Range: 3.2-5.2; Units: GM/DL; Status: F Test: ALBUMIN/GLOBULIN RATIO; Value: 1.29; Range: 1.00-1.93; Status: F Outcome: 20:09 Discharge ordered by Provider. ke 20:55 Discharge Assessment: Patient awake, alert and oriented x 3. No cognitive and/or [facility] functional deficits noted. Patient verbalized understanding of disposition instructions. patient administered narcotics - no. The following High Risk Discharge criteria are identified: None. Discharged to home ambulatory, with family. Condition: good Condition: stable Condition: improved. Discharge instructions given to patient, significant other, Instructed on discharge instructions, follow up and referral plans. medication usage, Demonstrated understanding of instructions, medications, Pt was receptive of discharge instructions/ teaching. Prescriptions given X 1. No special radiology studies were completed. Property :Personal belongings accompany Pt. 20:57 Patient left the ED. [facility] Signatures: Veena Santamaria, Reg Reg gb Bernardo Kramer, MANAGER OF INFORMATION MANAGER OF INFORMATION ke Keanu Milian, THOMAS COLUMN PRECASTER kb5 Vanessa Mcmanus, RN RN jjr Emily Meeks,RN RN cjh Joslyn Martínez, RN RN ttb Christian Mcmanus gr2 Valentin Putnam, COLUMN PRECASTER COLUMN PRECASTER Janell Gonzales Chart Complete MTDD
== END 2016-03-26 20:57 | disposition home or self-care (01) ==
LOC: M ED 17:43
DX: K52.9 Noninfective gastroenteritis and colitis, unspecified (principal); Z88.0 Allergy status to penicillin

== ENCOUNTER → 2020-03-25 | Outpatient (CLI) | payer SELFPAY | LOC: M LABSMTC 13:10 | PROVIDERS: ATTEND Pediatrics | DX: Z20.822 Contact with and (suspected) exposure to COVID-19 (principal) ==

== ENCOUNTER 2022-04-05 16:31 | Emergency (ER) | payer OTHER, SELFPAY ==
[~2022-04-05] VITALS: Ht 188 cm; Wt 100.0 kg
[2022-04-05 17:13] LABS: BASO # 0.1 10^3/uL (0.0-0.2); BASO % 0.4 % (0.0-1.0); EOS % 0.1 % (0.0-3.0); HEMATOCRIT 49.5 % (42.0-52.0); HEMOGLOBIN 17.4 g/dl (13.5-17.5); LYMPH # 1.3 10^3/uL (1.5-5.0); MEAN CORPUSCULAR HEMOGLOBIN 29.8 pg (27.0-33.0); MEAN CORPUSCULAR HGB CONC 35.2 g/dl (32.0-36.5); MEAN CORPUSCULAR VOLUME 84.9 fl (80.0-96.0); MONO # 0.6 10^3/uL (0.0-0.8); MONO % 4.6 % (2.0-8.0); NEUTROPHILS % 83.3 % (36.0-66.0); PLATELET COUNT, AUTOMATED 271 10^3/uL (150-450); RED BLOOD COUNT 5.83 10^6/uL (4.30-6.10)
[2022-04-05] MEDS ORDERED: ONDANSETRON 4MG 2ML VIAL IV ONE (17:40)
[2022-04-05] MEDS ORDERED: NS 1,000 ML IV ONE (17:40)
[2022-04-05 17:43] LABS: LIPASE 37 U/L (12-53)
[2022-04-05 17:44] LABS: AMYLASE 58 U/L (30-118)
[2022-04-05] MEDS ORDERED: KETOROLAC 30 MG/ML 1ML VIAL IV ONE (18:00)
[2022-04-05 18:09] LABS: ALBUMIN 4.6 G/DL (3.2-5.2); ALKALINE PHOSPHATASE 70 U/L (46-116); ALT/SGPT 35 U/L (7.0-40); AST/SGOT 19 U/L (<34); BILIRUBIN,DIRECT 0.7 MG/DL (<0.4); BILIRUBIN,TOTAL 2.2 MG/DL (0.3-1.2); BLOOD UREA NITROGEN 19 MG/DL (9-23); CALCIUM LEVEL 9.6 MG/DL (8.5-10.1); CARBON DIOXIDE LEVEL 22 MMOL/L (20-31); CHLORIDE LEVEL 104 MMOL/L (98-107); CREATININE FOR GFR 0.94 MG/DL (0.70-1.30); GLOMERULAR FILTRATION RATE > 60.0 (>60); GLUCOSE, FASTING 123 MG/DL (60-100); POTASSIUM SERUM 4.1 MMOL/L (3.5-5.1); SODIUM LEVEL 138 MMOL/L (136-145); TOTAL PROTEIN 7.9 G/DL (5.7-8.2)
[2022-04-05] MEDS ORDERED: ISOVUE-370 76% 100ML VIAL As Ordered ONE (18:12)
[2022-04-05 19:50] LABS: RSV AMPLIFICATION NEGATIVE (NEGATIVE)
[2022-04-05 21:16] VITALS: BP 111/68
== END 2022-04-05 21:36 | disposition home or self-care (01) ==
LOC: M ED 16:31
DX: N20.0 Calculus of kidney (principal); N40.1 Benign prostatic hyperplasia with lower urinary tract symptoms; K42.9 Umbilical hernia without obstruction or gangrene; K44.9 Diaphragmatic hernia without obstruction or gangrene; K76.0 Fatty (change of) liver, not elsewhere classified; F12.10 Cannabis abuse, uncomplicated; F10.10 Alcohol abuse, uncomplicated; Z88.0 Allergy status to penicillin
CPT/HCPCS: 74177; 80048; 80076; 82150; 83605; 83690; 85025; 87631; 96361; 96374; 96375; 99284; J1885; J2405

== ENCOUNTER 2023-01-15 01:39 | Emergency (ER) | payer SELFPAY ==
[~2023-01-15] VITALS: Ht 188 cm; Wt 104.2 kg
[2023-01-15 02:30] LABS: BASO % 0.2 % (0.0-1.0); HEMATOCRIT 45.2 % (42.0-52.0); HEMOGLOBIN 15.7 g/dl (13.5-17.5); LYMPH # 1.1 10^3/uL (1.5-5.0); MEAN CORPUSCULAR HGB CONC 34.7 g/dl (32.0-36.5); MEAN CORPUSCULAR VOLUME 86.4 fl (80.0-96.0); MONO # 0.4 10^3/uL (0.0-0.8); NEUTROPHILS # 10.8 10^3/uL (1.5-8.5); NEUTROPHILS % 87.3 % (36.0-66.0); PLATELET COUNT, AUTOMATED 275 10^3/uL (150-450); RED BLOOD COUNT 5.23 10^6/uL (4.30-6.10); WHITE BLOOD COUNT 12.4 10^3/uL (4.0-10.0)
[2023-01-15 02:48] LABS: LIPASE 30 U/L (12-53)
[2023-01-15 02:50] LABS: ALBUMIN 4.6 G/DL (3.2-5.2); ALKALINE PHOSPHATASE 59 U/L (46-116); ALT/SGPT 37 U/L (7.0-40); AST/SGOT 14 U/L (<34); BILIRUBIN,DIRECT 0.4 MG/DL (<0.4); BILIRUBIN,TOTAL 1.1 MG/DL (0.3-1.2); BLOOD UREA NITROGEN 14 MG/DL (9-23); CALCIUM LEVEL 9.7 MG/DL (8.5-10.1); CARBON DIOXIDE LEVEL 24 MMOL/L (20-31); CHLORIDE LEVEL 101 MMOL/L (98-107); GLOMERULAR FILTRATION RATE > 60.0 (>60); GLUCOSE, FASTING 178 MG/DL (60-100); POTASSIUM SERUM 4.2 MMOL/L (3.5-5.1); SODIUM LEVEL 136 MMOL/L (136-145); TOTAL PROTEIN 7.8 G/DL (5.7-8.2)
[2023-01-15 03:04] LABS: RSV AMPLIFICATION NEGATIVE (NEGATIVE)
[2023-01-15] MEDS ORDERED: ONDANSETRON 4MG 2ML VIAL IV ONE (04:00)
[2023-01-15] MEDS ORDERED: NS 1,000 ML IV ONE ×2 (05:10→06:40)
[2023-01-15] MEDS ORDERED: ISOVUE-370 76% 100ML VIAL As Ordered ONE (05:11)
[2023-01-15] MEDS ORDERED: KETOROLAC 30 MG/ML 1ML VIAL IV ONE (06:40)
[2023-01-15] MEDS ORDERED: METOCLOPRAMIDE INJ 10MG/2ML VIAL IV ONE (07:40)
[2023-01-15] MEDS ORDERED: ONDA4TAB6 PO (08:36)
[2023-01-15] MEDS ORDERED: PEPC1TAB5 PO (08:36)
[2023-01-15 09:15] VITALS: BP 147/80; TEMP 97.8; O2SAT 99
== END 2023-01-15 09:25 | disposition home or self-care (01) ==
LOC: M ED 01:39
DX: K52.9 Noninfective gastroenteritis and colitis, unspecified (principal); Z11.52 Encounter for screening for COVID-19; Z88.0 Allergy status to penicillin
CPT/HCPCS: 36415; 74177; 80048; 80076; 83690; 85025; 87631; 96374; 96375; 99284; J1885; J2405; J2765; Q9967